=== PATIENT | female | born 1940 | race Caucasian/White ===

== ENCOUNTER → 2016-09-02 | Outpatient (CLI) | payer MEDICARE, BC ==
--- NOTE | 2016-09-03 13:31 | MM ---
Reason for exam: screening (asymptomatic). Last mammogram was performed 2 years and 7 months ago. History: Patient is postmenopausal and has history of high-risk lesion on a previous biopsy at age 72. Family history of breast cancer in mother. Benign left breast needle localization of both breasts, January 17, 2013. High risk left mammotome panel of the left breast, January 03, 2013. Taking estrogen for 24 years beginning at age 48. Physical Findings: A clinical breast exam by your physician is recommended on an annual basis and results should be correlated with mammographic findings. MG 3D Screening Mammo W/Cad Bilateral CC and MLO view(s) were taken. Prior study comparison: February 06, 2014, bilateral MG diagnostic mammo w CAD SANJANA. July 24, 2013, left diagnostic mammogram w/CAD. The breast tissue is heterogeneously dense. This may lower the sensitivity of mammography. No significant changes when compared with prior studies. ASSESSMENT: Benign, BI-RAD 2 RECOMMENDATION: Routine screening mammogram of both breasts in 1 year.
== END | disposition home or self-care (01) ==
LOC: RADMAMWWP 12:56
PROVIDERS: ATTEND Internal Medicine
DX: Z12.31 Encounter for screening mammogram for malignant neoplasm of breast (principal)
CPT/HCPCS: 77063; G0202

== ENCOUNTER → 2016-12-30 | Outpatient (CLI) | payer MEDICARE, BC ==
[2016-12-30 09:49] LABS: Basophils % (A) 1 %; CH 31.9; CHCM 34.1; Eosinophils # (A) 0.2 k/uL (0-0.7); Eosinophils % (A) 4 %; HCT 44.1 % (34.0-46.0); HDW 2.59; HGB 14.6 gm/dL (11.4-16.0); Luc # (Auto) 0.17; Luc % (Auto) 3; Lymphocytes # (A) 1.5 k/uL (1.0-4.8); Lymphocytes % (A) 28 %; MCH 31.2 pg (25.0-35.0); MCHC 33.2 g/dL (31.0-37.0); MCV 94.1 fL (80.0-100.0); Mean Platelet Volume 7.2; Monocytes # (A) 0.6 k/uL (0-1.0); Monocytes % (A) 11 %; Neutrophils # (A) 2.9 k/uL (1.3-7.7); Neutrophils % (A) 53 %; RBC 4.69 m/uL (3.80-5.40); RDW 15.2 % (11.5-15.5); WBC 5.5 k/uL (3.8-10.6); WBC (Perox) 5.63
[2016-12-30 10:09] LABS: ALT 37 U/L (9-52); AST 27 U/L (14-36); Alkaline Phosphatase 87 U/L (38-126); Anion Gap 10 mmol/L; Blood Urea Nitrogen 18 mg/dL (7-17); Calcium 9.4 mg/dL (8.4-10.2); Carbon Dioxide 25 mmol/L (22-30); Chloride 105 mmol/L (98-107); Cholesterol 200 mg/dL (<200); Glucose 101 mg/dL (74-99); HDL Cholesterol 64 mg/dL (40-60); Non-African American GFR(MDRD) >60 (>60 ml/min/1.73 sqM); Potassium 4.3 mmol/L (3.5-5.1); Sodium 140 mmol/L (137-145); Total Bilirubin 0.5 mg/dL (0.2-1.3); Total Protein 6.6 g/dL (6.3-8.2)
[2016-12-30 13:29] LABS: Hemoglobin A1C 6.1 % (4.2-6.1)
== END | disposition home or self-care (01) ==
LOC: LABWHC1 09:10
PROVIDERS: ATTEND Internal Medicine
DX: E78.5 Hyperlipidemia, unspecified (principal); E11.9 Type 2 diabetes mellitus without complications
CPT/HCPCS: 36415; 80053; 80061; 83036; 84439; 84443; 85025

== ENCOUNTER → 2017-10-04 | Outpatient (CLI) | payer MEDICARE, BC ==
--- NOTE | 2017-10-05 13:24 | MM ---
Reason for exam: screening (asymptomatic). Last mammogram was performed 1 year and 1 month ago. History: Patient is postmenopausal and has history of high-risk lesion on a previous biopsy at age 72. Family history of breast cancer in mother. Benign left breast needle localization of both breasts, January 17, 2013. High risk left mammotome panel of the left breast, January 03, 2013. Taking estrogen for 24 years beginning at age 48. Physical Findings: A clinical breast exam by your physician is recommended on an annual basis and results should be correlated with mammographic findings. MG 3D Screening Mammo W/Cad Bilateral CC and MLO view(s) were taken. Prior study comparison: September 02, 2016, bilateral MG 3d screening mammo w/cad. February 06, 2014, bilateral MG diagnostic mammo w CAD SANJANA. The breast tissue is heterogeneously dense. This may lower the sensitivity of mammography. Finding #1: Stable architectural distortion in the upper outer quadrant, posterior middle position of the left breast consistent with known excision. Finding #2: There are typically benign dystrophic, round calcifications in both breasts. New nodularity in the right breast, few levels. New finding since February 06, 2014. ASSESSMENT: Incomplete: need additional imaging evaluation, BI-RAD 0 RECOMMENDATION: Ultrasound of the right breast. [facility] will attempt to contact patient to return for ultrasound.
== END | disposition home or self-care (01) ==
LOC: RADMAMWWP 14:32
PROVIDERS: ATTEND Internal Medicine
DX: Z12.31 Encounter for screening mammogram for malignant neoplasm of breast (principal)
CPT/HCPCS: 77063; 77067

== ENCOUNTER → 2017-10-21 | Outpatient (CLI) | payer MEDICARE, BC ==
--- NOTE | 2017-10-21 15:50 | USB ---
Reason for exam: additional evaluation requested from abnormal screening. History: Patient is postmenopausal and has history of high-risk lesion on a previous biopsy at age 72. Family history of breast cancer in mother. Benign left breast needle localization of both breasts, January 17, 2013. High risk left mammotome panel of the left breast, January 03, 2013. Taking estrogen for 24 years beginning at age 48. Physical Findings: Nurse did not find any significant physical abnormalities on exam. US Breast Workup RT Right complete breast ultrasound includes all four quadrants, the retroareolar region and axilla. Finding demonstrates a 0.6 x 0.4 x 0.5cm oval, cystic lesion at 12 o'clock, a 0.8 x 0.4 x 0.8cm oval, cystic lesion at 3 o'clock, a 0.9 x 0.4 x 0.4cm oval, mixed lesion at 6 o'clock, a 0.5 x 0.3 x 0.7cm oval, cystic lesion at 8 o'clock and a 0.7 x 0.4 x 0.4cm oval, cystic lesion at 10 o'clock. Overall fibrocystic change. These results were verbally communicated with the patient and result sheet given to the patient on 10/21/17. ASSESSMENT: Probably benign, BI-RAD 3 RECOMMENDATION: Follow-up diagnostic mammogram and ultrasound of the right breast in 6 months.
== END | disposition home or self-care (01) ==
LOC: RADUSWWP 14:31
PROVIDERS: ATTEND Internal Medicine
DX: R92.8 Other abnormal and inconclusive findings on diagnostic imaging of breast (principal)

== ENCOUNTER → 2018-01-11 | Outpatient (CLI) | payer MEDICARE, BC ==
[2018-01-11 13:42] LABS: MCH 30.8 pg (25.0-35.0); MCHC 32.7 g/dL (31.0-37.0); MCV 94.2 fL (80.0-100.0); Mean Platelet Volume 6.7; Platelet Count 319 k/uL (150-450); RBC 4.89 m/uL (3.80-5.40); RDW 13.6 % (11.5-15.5); WBC 8.7 k/uL (3.8-10.6)
[2018-01-11 13:43] LABS: Potassium 4.5 mmol/L (3.5-5.1)
== END | disposition home or self-care (01) ==
LOC: LABWHC1 13:03
PROVIDERS: ATTEND Internal Medicine Interventional Cardiology
DX: Z01.812 Encounter for preprocedural laboratory examination (principal); R07.9 Chest pain, unspecified; R06.02 Shortness of breath
CPT/HCPCS: 36415; 80051; 82565; 84520; 85027

== ENCOUNTER 2018-01-27 06:24 | Day surgery (SDC) | payer MEDICARE, BC ==
[2018-01-20 15:48] VITALS: BMI 31.1
[~2018-01-27 06:24] MED LIST: ALPRAZolam 0.25 MG TAB PO PRN; ALPRAZolam 0.5 MG TAB PO PRN; NITROGLYCERIN SL TABS 0.4 MG TAB SUBLINGUAL PRN; SODIUM CHLORIDE 0.9% 1,000 ML in EMPTY BAG 1 BAG IV ONE
[2018-01-27 06:56] LABS: Glucose,Whole Blood 102 mg/dL (75-99)
[2018-01-27] MEDS ORDERED: ASPIRIN 325 MG TAB PO ONE (07:00)
[2018-01-27] MEDS ORDERED: ATORVASTATIN 80 MG TAB PO ONE (07:00)
[2018-01-27 07:13] VITALS: RESP 16; TEMP 98
[2018-01-27] MEDS ORDERED: SODIUM CHLORIDE 0.9% 1,000 ML IV ONE (07:16)
[2018-01-27] MEDS ORDERED: LIDOCAINE 1% INJ 10MG/ML (20 ML MDV) ONE (08:59)
[2018-01-27] MEDS ORDERED: MIDAZOLAM 2 MG/2 ML VIAL ONE (08:59)
[2018-01-27] MEDS ORDERED: MIDAZOLAM 2 MG/2 ML VIAL IVP ONE (09:13)
[2018-01-27] MEDS ORDERED: fentaNYL (PF) 50 MCG/ML 2 ML AMP ONE (09:16)
[2018-01-27] MEDS ORDERED: LIDOCAINE 1% (PF) 10MG/ML VIAL SQ ONE (09:16)
[2018-01-27] MEDS ORDERED: fentaNYL (PF) 50 MCG/ML 2 ML AMP IVP ONE (09:17)
[2018-01-27] MEDS ORDERED: IOPAMIDOL-370 125ML BTL INJ ONE (09:32)
[2018-01-27] MEDS ORDERED: RX INFO: IV CONTRAST WAS GIVEN 1 EACH MISC MISCELLANE PRN (09:38)
[2018-01-27] MEDS ORDERED: SODIUM CHLORIDE 0.9% 1,000 ML IV SCH (09:45)
--- NOTE | 2018-01-27 09:59 | LTR ---
DATE OF SERVICE: 01/27/2018 RE: Jayshree Fields Dear Dr. Olson. Ms. Jayshree Fields underwent heart catheterization today and that revealed normal coronaries. Again, I want to thank you for allowing me to participate in her care and please do not hesitate to call if you have question or concern. Sincerely, Therese Lara. YURI / MARCO A: [id number] /
--- NOTE | 2018-01-27 10:20 | CC ---
CARDIAC CATHETERIZATION REPORT DATE OF SERVICE: January 27, 2019 PERFORMING PHYSICIAN: Basim Lopez MD, employment specialist. PROCEDURE PERFORMED: 1. Selective right and left coronary angiogram. 2. Left heart catheterization. INDICATION: This is a pleasant 77-year-old female patient who is diabetic who was experiencing exertional dyspnea concerning for angina . I did recommend proceeding with a stress test to rule out any severe underlying coronary artery disease, but the patient would rather proceed with a coronary angiogram. The benefits, risks, and alternatives were discussed with the patient. APPROACH: Right common femoral artery. COMPLICATION: None LEVEL OF SEDATION: Moderate with sedation length of 18 minutes. PROCEDURE DESCRIPTION: After obtaining an informed consent, the patient was brought to cardiac syrup machine laborer. The right common femoral artery was cannulated using micropuncture technique and a micropuncture wire was passed easily then I placed a 6-[place] Ze[place]ander sheath in the right common femoral artery. After that, I did selective right and left coronary angiogram using JR4 and JL4 catheters. Left heart catheterization was performed using 6-[place]ander pigtail catheter. The procedure was completed without any complication. SELECTIVE CORONARY ANGIOGRAM: 1. The right coronary artery is a large caliber vessel and it is a dominant vessel. It is angiographically normal. 2. The left main is normal as well. It bifurcates into the left circumflex, ramus intermedius, and left anterior descending artery. 3. The circumflex is a large caliber vessel. It is a nondominant vessel. It is angiographically normal. 4. The ramus intermedius is angiographically normal as well. It bifurcates into 2 branches, both are angiographically normal. 5. The LAD: The LAD itself is angiographically normal. In the midportion gives rise into a small diagonal branch which seems to be angiographically normal. HEMODYNAMICS: The left ventricular end-diastolic pressure was 18 mmHg and no gradient was identified across the aortic valve. CONCLUSION: 1. Normal coronary angiogram. 2. Normal left ventricular end-diastolic pressure. POSTPROCEDURE MANAGEMENT: 1. Medical treatment. 2. Follow up with the patient. MMODL / IJN: [id number] /
[2018-01-27 13:32] VITALS: BP 154/76; PULSE 66
== END 2018-01-27 14:58 | disposition home or self-care (01) ==
LOC: CATHCVL 06:24
PROVIDERS: ATTEND Internal Medicine Interventional Cardiology
DX: I20.0 Unstable angina (principal); I10 Essential (primary) hypertension; E11.9 Type 2 diabetes mellitus without complications; E78.00 Pure hypercholesterolemia, unspecified; Z82.49 Family history of ischemic heart disease and other diseases of the circulatory system; Z88.0 Allergy status to penicillin; Z88.2 Allergy status to sulfonamides; Z79.84 Long term (current) use of oral hypoglycemic drugs; Z79.890 Hormone replacement therapy; Z79.51 Long term (current) use of inhaled steroids
CPT/HCPCS: 93458; C1894; C1769 ×2; C1760; J2250; J3010; J2001; Q9967

== ENCOUNTER 2018-08-18 06:52 | Day surgery (SDC) | payer MEDICARE, BC ==
[2018-08-15 11:00] VITALS: BMI 31.1
[~2018-08-18 06:52] MED LIST changes: -ALPRAZolam 0.25 MG TAB PO PRN; -ALPRAZolam 0.5 MG TAB PO PRN; +LACTATED RINGERS 1,000 ML IV SCH; +LIDOCAINE 1% 20 ML VIAL (10MG/ML) FOR IV START INTRADERMA PRN; -NITROGLYCERIN SL TABS 0.4 MG TAB SUBLINGUAL PRN; -SODIUM CHLORIDE 0.9% 1,000 ML in EMPTY BAG 1 BAG IV ONE
[2018-08-18 07:17] VITALS: TEMP 96.8
[2018-08-18 07:28] LABS: Glucose,Whole Blood 99 mg/dL (75-99)
[2018-08-18] MEDS ORDERED: PROPOFOL 10 MG/ML 20 ML VIAL IV ONE (08:03)
[2018-08-18] MEDS ORDERED: LIDOCAINE 1% INJ 10MG/ML (20 ML MDV) ONE (08:03)
[2018-08-18] MEDS ORDERED: fentaNYL (PF) 50 MCG/ML 2 ML AMP ONE (08:03)
[2018-08-18] MEDS ORDERED: ONDANSETRON 4 MG/2 ML VIAL ONE (08:03)
--- NOTE | 2018-08-18 08:44 | P.PCN ---
Date of Procedure: 08/18/18 Procedure(s) Performed: Procedure: 1. Esophagogastroduodenoscopy and biopsy. 2. Total colonoscopy. Preoperative diagnosis: Gastroesophageal reflux disease and screening for colon cancer. Postoperative diagnosis: 1. Small sliding hiatal hernia with no obvious esophagitis or complicated reflux disease. 2. Mild antral gastritis. 3. Biopsies obtained from the duodenum, antrum and esophagus. 4. Colonoscopy revealed mild diverticulosis with no evidence of acute diverticulitis, strictures, polyps or cancer. Preparation: HalfLytely prep. Sedation: Was provided by anesthesia. Brief clinical history: The patient is a 78-year-old female who is scheduled for this evaluation because of symptomatic GERD, despite therapy, with throat complaints and atypical chest pains and intermittent issues with swallowing. In addition, she is scheduled for colonoscopy for screening for neoplasia age being her risk factor. Her last exam was more than 11 years ago. Procedure: With the patient on her left lateral decubitus position and after informed consent and adequate sedation, I passed the Olympus-GIF H190 video upper endoscope through the cricopharyngeus down the esophagus. GE junction was around 33-34 cm from the incisors and there was a small sliding hiatal hernia but no obvious esophagitis or complicated reflux disease. Specifically, there was no erosions, ulcers, Robins's esophagus or strictures. The endoscope was then passed into the stomach which was insufflated with air and inspected in detail including the retroflex view in the cardia. There was some mottling and erythema in the antrum but no ulcers or erosions. Pyloric channel did not show any ulcers. Duodenal bulb showed minimal erythema. Post bulbar area and descending duodenum appeared within normal limits. Because of her symptoms, I obtained biopsies from the duodenum, antrum and esophagus then the endoscope was withdrawn and I proceeded with the colonoscopy. Perianal area did not show any fissures or fistulas. There were no masses felt on digital rectal examination. The Olympus CFH 190L video colonoscope was then inserted in the rectum in the usual fashion and advanced to the cecum. There was occasional diverticular orifices seen scattered in the sigmoid and occasional orifice around the hepatic flexure and on the right side with no evidence of acute diverticulitis or strictures. The mucosa appeared healthy. No polyps or tumors were seen. I retroflexed the endoscope in the rectum before the endoscope was withdrawn. The patient tolerated the procedure well. Plan: The patient was reassured. Will await biopsy results. Discussed dietary measures. She will follow-up with you as planned and I will be happy to see in the office if her symptoms persist. For colon cancer screening, I did not recommend repeat exam in 10 years because of her age. She will discuss that with you.
[2018-08-18 09:00] VITALS: BP 144/64; PULSE 54; RESP 18
== END 2018-08-18 09:33 | disposition home or self-care (01) ==
LOC: ORWHC2ENDO 06:52
DX: Z12.11 Encounter for screening for malignant neoplasm of colon (principal); K29.50 Unspecified chronic gastritis without bleeding; K44.9 Diaphragmatic hernia without obstruction or gangrene; K57.30 Diverticulosis of large intestine without perforation or abscess without bleeding; J44.9 Chronic obstructive pulmonary disease, unspecified; E11.9 Type 2 diabetes mellitus without complications; K21.9 Gastro-esophageal reflux disease without esophagitis; E07.9 Disorder of thyroid, unspecified; I10 Essential (primary) hypertension; Z88.0 Allergy status to penicillin; Z88.2 Allergy status to sulfonamides; Z96.653 Presence of artificial knee joint, bilateral; Z79.84 Long term (current) use of oral hypoglycemic drugs; Z79.890 Hormone replacement therapy
CPT/HCPCS: 88305; 43239; J2405; J2001; J3010; J2704; G0121

== ENCOUNTER → 2018-09-28 | Outpatient (CLI) | payer MEDICARE, BC ==
[2018-09-28 10:09] LABS: Basophils # (A) 0.1 k/uL (0-0.2); Basophils % (A) 1 %; Eosinophils # (A) 0.3 k/uL (0-0.7); Eosinophils % (A) 5 %; HCT 43.4 % (34.0-46.0); Lymphocytes % (A) 30 %; MCH 31.2 pg (25.0-35.0); MCHC 32.3 g/dL (31.0-37.0); MCV 96.5 fL (80.0-100.0); Mean Platelet Volume 7.4; Monocytes # (A) 0.4 k/uL (0-1.0); Monocytes % (A) 6 %; Neutrophils # (A) 3.8 k/uL (1.3-7.7); Neutrophils % (A) 56 %; Platelet Count 247 k/uL (150-450); RDW 14.3 % (11.5-15.5); WBC 6.8 k/uL (3.8-10.6)
[2018-09-28 12:18] LABS: Erythrocyte Sedimentation Rate 13 mm/hr (0-20)
[2018-09-28 16:58] LABS: African American GFR (CKD) 63.4 (60.0-200.0); Albumin/Globulin Ratio 1.82 (1.60-3.17); Anion Gap 10.8 mmol/L (4.00-12.00); Calcium 9.7 mg/dL (8.7-10.3); Carbon Dioxide 24.2 mmol/L (21.6-31.8); Globulin 2.2 g/dL (1.6-3.3); Potassium 4.3 mmol/L (3.5-5.5); Total Bilirubin 0.5 mg/dL (0.3-1.2); Total Protein 6.2 g/dL (6.2-8.2)
[2018-09-28 17:46] LABS: T4, Free (Free Thyroxine) 0.9 ng/dL (0.80-1.80)
== END | disposition home or self-care (01) ==
LOC: LABWHC1 08:44
PROVIDERS: ATTEND Internal Medicine
DX: Z00.00 Encounter for general adult medical examination without abnormal findings (principal); I10 Essential (primary) hypertension; E78.5 Hyperlipidemia, unspecified
CPT/HCPCS: 36415; 80053; 80061; 84439; 84443; 85025; 85652

== ENCOUNTER → 2018-11-28 | Outpatient (CLI) | payer MEDICARE, BC ==
[2018-11-28 16:37] LABS: BUN/Creat Ratio 27.78 Ratio (12.00-20.00); Calcium 9.4 mg/dL (8.7-10.3); Non-African American GFR(CKD) 62.1 (60.0-200.0); Potassium 4.7 mmol/L (3.5-5.5)
[2018-11-28 16:46] LABS: T4, Free (Free Thyroxine) 1.1 ng/dL (0.80-1.80)
== END ==
LOC: LABWHC1 09:08
PROVIDERS: ATTEND Internal Medicine
DX: E03.9 Hypothyroidism, unspecified (principal)
CPT/HCPCS: 36415; 80048; 84439; 84443

== ENCOUNTER → 2019-10-24 | Outpatient (CLI) | payer MEDICARE, BC ==
--- NOTE | 2019-10-24 14:04 | MM ---
Reason for exam: additional evaluation requested from prior study. Last mammogram was performed 1 year and 1 month ago. History: Patient is postmenopausal and has history of high-risk lesion on a previous biopsy at age 72. Family history of breast cancer in mother. Benign left breast needle localization of both breasts, January 17, 2013. High risk left mammotome panel of the left breast, January 03, 2013. Taking estrogen for 24 years beginning at age 48. Physical Findings: Nurse did not find any significant physical abnormalities on exam. MG 3D Diag Mammo W/Cad SANJANA Bilateral CC and MLO view(s) were taken. Prior study comparison: October 05, 2018, bilateral MG 3d diag mammo w/cad SANJANA. October 04, 2017, bilateral MG 3d screening mammo w/cad. Bilateral calcifications. There is chronic nodularity bilaterally. No significant new findings when compared with previous films. These results were verbally communicated with the patient and result sheet given to the patient on 10/24/19. ASSESSMENT: Benign, BI-RAD 2 RECOMMENDATION: Routine screening mammogram of both breasts in 1 year.
== END | disposition home or self-care (01) ==
LOC: RADMAMWWP 12:42
PROVIDERS: ATTEND Internal Medicine
DX: R92.8 Other abnormal and inconclusive findings on diagnostic imaging of breast (principal)
CPT/HCPCS: 77066; G0279; 77062

== ENCOUNTER → 2019-12-04 | Outpatient (CLI) | payer MEDICARE, BC ==
--- NOTE | 2019-12-04 13:57 | US ---
EXAMINATION TYPE: US gallbladder DATE OF EXAM: 12/04/2019 COMPARISON: NONE CLINICAL HISTORY: 79-year-old female Cholecystitis K80.10. Pain and belching TECHNIQUE: Multiple sonographic images of the right upper quadrant are obtained. FINDINGS: EXAM MEASUREMENTS: Liver Length: 13.1 cm Gallbladder Wall: 0.2 cm CBD: 0.5 cm Right Kidney: 9.3 x 4.8 x 4.4 cm Pancreas: Echogenic with tail obscured by overlying bowel gas. Liver: Somewhat hypoechoic. This may be on a technical basis. No focal lesion seen. Gallbladder: Multiple mobile stones with largest - 2.2 cm . No abnormal distention or wall thickenin g. Evidence for sonographic Pizano's sign: neg CBD: wnl Right Kidney: No hydronephrosis. IMPRESSION: 1. Somewhat hypoechoic appearance to the liver. Suspect this to be on a technical basis. Correlate to exclude the possibility of hepatitis. 2. Cholelithiasis with multiple stones, largest measuring 2.2 cm. 3. No biliary ductal dilatation.
== END | disposition home or self-care (01) ==
LOC: RADUSWWP 12:48
PROVIDERS: ATTEND Internal Medicine
DX: K80.10 Calculus of gallbladder with chronic cholecystitis without obstruction (principal); Z88.0 Allergy status to penicillin; Z88.2 Allergy status to sulfonamides
CPT/HCPCS: 76705

== ENCOUNTER → 2020-06-28 | Outpatient (CLI) | payer MEDICARE, BC ==
[2020-06-28 19:25] LABS: HCT 44.2 % (37.2-46.3); HGB 14.6 g/dL (12.0-15.0); MCH 31.5 pg (27.0-32.0); MCV 95.3 fL (80.0-97.0); Mean Platelet Volume 10.4 fL (9.5-12.2); Platelet Count 276 X 10*3/uL (140-440); RBC 4.64 X 10*6/uL (4.10-5.20); RDW 14.5 % (11.5-14.5); WBC 9.26 X 10*3/uL (4.50-10.00)
[2020-06-28 22:33] LABS: Albumin 4.4 g/dL (3.80-4.90); Albumin/Globulin Ratio 2.2 (1.60-3.17); Anion Gap 9.1 mmol/L (4.00-12.00); BUN/Creat Ratio 24.44 Ratio (12.00-20.00); Calcium 9.8 mg/dL (8.7-10.3); Carbon Dioxide 28.9 mmol/L (21.6-31.8); Non-African American GFR(CKD) 61.2 (60.0-200.0); Potassium 4.6 mmol/L (3.5-5.5); Total Bilirubin 0.4 mg/dL (0.3-1.2); Total Protein 6.4 g/dL (6.2-8.2)
== END | disposition home or self-care (01) ==
LOC: LABWHC1 11:14
PROVIDERS: ATTEND Surgery
DX: K81.1 Chronic cholecystitis (principal)
CPT/HCPCS: 36415; 80053; 85027

== ENCOUNTER 2020-07-17 18:45 | Emergency (ER) | payer MEDICARE, BC ==
[2020-07-17 20:06] VITALS: RESP 18
[2020-07-17] MEDS ORDERED: SODIUM CHLORIDE 0.9% 1,000 ML IV ONE (21:14)
--- NOTE | 2020-07-17 21:15 | ED ---
General Adult HPI - General Chief complaint: Upper Respiratory Infection Stated complaint: cough/weakness/fever/headache/sob Time Seen by Provider: 07/17/20 21:13 Source: patient Mode of arrival: ambulatory Limitations: no limitations - History of Present Illness Initial comments: Jayshree is a 72-year-old female presents the ER today with concern that she has COVID. Patient reports that for the past 6 days she has had upper respiratory like infection the nasal congestion, cough, fever, malaise bodyaches. Patient states she has not been eating or drinking well because she doesn't feel good. - Related Data Home Medications Medication Instructions Recorded Confirmed Albuterol Inhaler (Mhu) [Ventolin 1 - 2 puff INHALATION RT-Q6H PRN 01/20/18 07/17/20 Hfa Inhaler (Mhu)] Aspirin 81 mg PO HS 01/20/18 07/17/20 Levothyroxine Sodium [Synthroid] 25 mcg PO DAILY 01/20/18 07/17/20 Meclizine HCl [Bonine] 25 mg PO DAILY PRN 01/20/18 07/17/20 Vitamin B Complex 1 each PO DAILY 01/20/18 07/17/20 estradioL [Estrace] 1 mg PO DAILY 01/20/18 07/17/20 Cetirizine HCl 10 mg PO HS 01/24/18 07/17/20 Cranberry Fruit Extract [Cranberry] 500 mg PO DAILY 01/24/18 07/17/20 metFORMIN HCL [Glucophage Xr] 500 mg PO BID 01/27/18 07/17/20 Budesonide/Formoterol Fumarate 2 puff INHALATION BID 08/15/18 07/17/20 [Symbicort 160-4.5 Mcg Inhaler] Omeprazole [PriLOSEC] 20 mg PO BID 08/15/18 07/17/20 Metoprolol Tartrate [Lopressor] 50 mg PO BID 08/18/18 07/17/20 Cholecalciferol [Vitamin D3 (25 25 mcg PO DAILY 07/17/20 07/17/20 Mcg = 1000 Iu)] Naproxen [Naprosyn] 375 mg PO Q12HR 07/17/20 07/17/20 Willis-3 Fatty Acids/Fish Oil [Fish 1 each PO DAILY 07/17/20 07/17/20 Oil 1,000 mg Softgel] Vitamin E 400 unit PO DAILY 07/17/20 07/17/20 Zinc 50 mg PO DAILY 07/17/20 07/17/20 Allergies Allergy/AdvReac Type Severity Reaction Status Date / Time Penicillins Allergy Unknown Verified 07/17/20 20:06 Sulfa (Sulfonamide Allergy Itching Verified 07/17/20 20:06 Antibiotics) Review of Systems ROS Statement: Those systems with pertinent positive or pertinent negative responses have been documented in the HPI. ROS Other: All systems not noted in ROS Statement are negative. Past Medical History Past Medical History: Atrial Flutter, Asthma, Diabetes Mellitus, GERD/Reflux, Hypertension, Thyroid Disorder Additional Past Medical History / Comment(s): difficulty swallowing and clearing throat, hx vertigo History of Any Multi-Drug Resistant Organisms: None Reported Past Surgical History: Heart Catheterization, Hysterectomy, Joint Replacement, Orthopedic Surgery Additional Past Surgical History / Comment(s): tiffanie knee replacement, ankle fused, bill hammer toes, bunionectomy, rt rotator cuff, tiffanie cataract Past Anesthesia/Blood Transfusion Reactions: Postoperative Nausea & Vomiting (PONV) Past Psychological History: No Psychological Hx Reported Smoking Status: Never smoker Past Alcohol Use History: None Reported Past Drug Use History: None Reported - Past Family History Mother Family Medical History: Cancer Father Family Medical History: Myocardial Infarction ([place]) Brother(s) Family Medical History: Cancer General Exam - General Exam Comments Initial Comments: Physical Exam GENERAL: Patient is well-developed and well-nourished. Appears dehydrated HENT: Normocephalic, Atraumatic. EYES: PERRL, EOMI PULMONARY: Unlabored respirations. CARDIOVASCULAR: RRR Warm and well perfused extremities ABDOMEN: Non-distended SKIN: No rashes or bruising : Deferred NEUROLOGIC: Alert and oriented Normal speech Normal gait MUSCULOSKELETAL: Moving all extremities with no apparent injury PSYCHIATRIC: No SI/HI Limitations: no limitations Course Vital Signs 07/17/20 07/17/20 07/17/20 20:03 21:54 23:32 Temperature 99.8 F H 98.9 F 98.6 F Pulse Rate 89 77 73 Respiratory 18 18 18 Rate Blood Pressure 146/69 139/70 149/75 O2 Sat by Pulse 96 95 95 Oximetry Medical Decision Making - Medical Decision Making 80-year-old female COVID, 6 days of symptoms is a candidate and would like to be treated with monoclonal antibodies Monoclonal antibodies were ordered and administered patient be discharged home in 1 hour of observation for adverse reaction to the infusion - Lab Data Result diagrams: 07/17/20 21:54 07/17/20 21:54 Lab Results 07/17/20 07/17/20 07/17/20 Range/Units 20:11 21:54 21:54 WBC 8.6 (3.8-10.6) k/uL RBC 4.82 (3.80-5.40) m/uL Hgb 15.2 (11.4-16.0) gm/dL Hct 44.3 (34.0-46.0) % MCV 91.8 (80.0-100.0) fL MCH 31.5 (25.0-35.0) pg MCHC 34.3 (31.0-37.0) g/dL RDW 13.3 (11.5-15.5) % Plt Count 246 (150-450) k/uL MPV 7.1 Neutrophils % 66 % Lymphocytes % 23 % Monocytes % 9 % Eosinophils % 0 % Basophils % 0 % Neutrophils # 5.6 (1.3-7.7) k/uL Lymphocytes # 2.0 (1.0-4.8) k/uL Monocytes # 0.8 (0-1.0) k/uL Eosinophils # 0.0 (0-0.7) k/uL Basophils # 0.0 (0-0.2) k/uL Sodium 135 L (137-145) mmol/L Potassium 4.3 (3.5-5.1) mmol/L Chloride 96 L (98-107) mmol/L Carbon Dioxide 29 (22-30) mmol/L Anion Gap 10 mmol/L BUN 26 H (7-17) mg/dL Creatinine 0.92 (0.52-1.04) mg/dL Est GFR (CKD-EPI)AfAm 69 (>60 ml/min/1.73 sqM) Est GFR (CKD-EPI)NonAf 60 (>60 ml/min/1.73 sqM) Glucose 147 H (74-99) mg/dL Calcium 9.4 (8.4-10.2) mg/dL Magnesium 2.1 (1.6-2.3) mg/dL Total Bilirubin 0.5 (0.2-1.3) mg/dL AST 31 (14-36) U/L ALT 23 (4-34) U/L Alkaline Phosphatase 99 (38-126) U/L Total Protein 6.3 (6.3-8.2) g/dL Albumin 3.8 (3.5-5.0) g/dL Coronavirus (PCR) Detected A (Not Detectd) Disposition Clinical Impression: COVID-19 Disposition: HOME SELF-CARE Condition: Stable Additional Instructions: You have tested positive for COVID 19 You received monoclonal antibody treatment You still need to quarantined for 10 days Return to the hospital if he have any worsening fever that doesn't improve with Tylenol or Motrin, shortness of breath or chest pain or any new or concerning symptoms Is patient prescribed a controlled substance at d/c from ED?: No Referrals: Megan Olson MD [Primary Care Provider] - 1-2 days
[2020-07-17] MEDS ORDERED: DEXAMETHASONE SOD PHOSPHATE 10 MG/ML 1 ML VIAL IV STA (21:44)
[2020-07-17 22:34] LABS: Albumin 3.8 g/dL (3.5-5.0); Calcium 9.4 mg/dL (8.4-10.2); Magnesium 2.1 mg/dL (1.6-2.3); Potassium 4.3 mmol/L (3.5-5.1); Total Bilirubin 0.5 mg/dL (0.2-1.3); Total Protein 6.3 g/dL (6.3-8.2)
--- NOTE | 2020-07-17 22:41 | XR ---
EXAMINATION TYPE: XR chest 1V DATE OF EXAM: 07/17/2020 COMPARISON: 06/25/2020. HISTORY: Cough. TECHNIQUE: Single frontal view of the chest is obtained. FINDINGS: There is no focal air space opacity, pleural effusion, or pneumothorax seen. The cardiac silhouette size is within normal limits. The osseous structures are intact. IMPRESSION: No acute process.
[2020-07-17] MEDS ORDERED: SODIUM CHLORIDE 0.9% 50 ML IVPB ONE (22:45)
[2020-07-17] MEDS ORDERED: BAMLANIVIMAB (EUA) 700 MG, ETESEVIMAB (EUA) 1,400 MG in SODIUM CHLORIDE 0.9% 50 ML IVPB ONE (22:45)
[2020-07-17 23:28] LABS: Basophils % (A) 0 %; Eosinophils % (A) 0 %; HCT 44.3 % (34.0-46.0); HGB 15.2 gm/dL (11.4-16.0); Lymphocytes % (A) 23 %; MCH 31.5 pg (25.0-35.0); MCHC 34.3 g/dL (31.0-37.0); MCV 91.8 fL (80.0-100.0); Mean Platelet Volume 7.1; Monocytes # (A) 0.8 k/uL (0-1.0); Monocytes % (A) 9 %; Neutrophils # (A) 5.6 k/uL (1.3-7.7); Neutrophils % (A) 66 %; Platelet Count 246 k/uL (150-450); RBC 4.82 m/uL (3.80-5.40); RDW 13.3 % (11.5-15.5); WBC 8.6 k/uL (3.8-10.6)
[2020-07-18 01:21] VITALS: BP 142/71; PULSE 69
[2020-07-18 01:22] VITALS: TEMP 99.8
== END 2020-07-18 01:58 | disposition home or self-care (01) ==
LOC: EC 18:45
DX: U07.1 COVID-19 (principal); J45.909 Unspecified asthma, uncomplicated; E11.9 Type 2 diabetes mellitus without complications; K21.9 Gastro-esophageal reflux disease without esophagitis; I10 Essential (primary) hypertension; E07.9 Disorder of thyroid, unspecified; I48.92 Unspecified atrial flutter; Z79.51 Long term (current) use of inhaled steroids; Z79.82 Long term (current) use of aspirin; Z79.890 Hormone replacement therapy; Z79.84 Long term (current) use of oral hypoglycemic drugs; Z79.899 Other long term (current) drug therapy; Z88.0 Allergy status to penicillin; Z88.2 Allergy status to sulfonamides; Z96.653 Presence of artificial knee joint, bilateral; Z98.42 Cataract extraction status, left eye; Z98.41 Cataract extraction status, right eye; Z95.5 Presence of coronary angioplasty implant and graft
CPT/HCPCS: 36415; 80053; 83735; 85025; 87635; 71045; 99285; 96365; 96375; 96361 ×2; J1100; Q0245

== ENCOUNTER 2020-08-05 06:26 | Day surgery (SDC) | payer MEDICARE, BC ==
[2020-07-17 11:17] VITALS: BMI 32.5
[~2020-08-05 06:26] MED LIST changes: +ACETAMINOPHEN TAB 500 MG TAB PO PRN; +DEXAMETHASONE SOD PHOSPHATE 4 MG/ML 1 ML VIAL IV ONE; +HEPARIN SODIUM,PORCINE/PF 5,000 UNIT/0.5 ML SYRINGE SQ PRN; +LIDOCAINE 1% (10MG/ML) FOR IV START INTRADERMA PRN; -LIDOCAINE 1% 20 ML VIAL (10MG/ML) FOR IV START INTRADERMA PRN; +ONDANSETRON 4 MG/2 ML VIAL IVP ONE
[2020-08-05 07:08] VITALS: RESP 16
[2020-08-05 07:19] LABS: Glucose,Whole Blood 111 mg/dL (75-99)
[2020-08-05] MEDS ORDERED: SUCCINYLCHOLINE CHLORIDE 100 MG/5 ML SYR IV ONE (07:40)
[2020-08-05] MEDS ORDERED: GLYCOPYRROLATE 0.2 MG/ML 2 ML VIAL ONE (07:40)
[2020-08-05] MEDS ORDERED: PROPOFOL 10 MG/ML 20 ML VIAL IV ONE (07:40)
[2020-08-05] MEDS ORDERED: fentaNYL (PF) 50 MCG/ML 2 ML AMP ONE (07:40)
[2020-08-05] MEDS ORDERED: ROCURONIUM 10 MG/ML (5 ML VIAL) IV ONE (07:40)
[2020-08-05] MEDS ORDERED: LIDOCAINE 1% INJ 10MG/ML (20 ML MDV) ONE (07:40)
[2020-08-05] MEDS ORDERED: WATER FOR INJECTION, STERILE 10 ML VIAL IV ONE (07:40)
[2020-08-05] MEDS ORDERED: NEOSTIGMINE 1 MG/ML 10 ML VIAL ONE (07:40)
[2020-08-05] MEDS ORDERED: ePHEDrine SULFATE/0.9% NACL/PF 50 MG/5 ML SYRINGE IV ONE (07:40)
--- NOTE | 2020-08-05 07:40 | P.GSHP ---
History of Present Illness H&P Date: 08/05/20 Chief Complaint: Chronic cholecystitis 80-year-old female has had complaints of right upper quadrant abdominal pain, nausea and vomiting intermittently for the last few years. Lately she has had more frequent episodes of pain and vomiting occurring almost weekly. Symptoms last for a few hours at a time. Ultrasound performed showing multiple gallstones with largest gallstone 2.2 cm. Denies any change in the color of her skin urine or stool. Recent labs normal. Past Medical History Past Medical History: Atrial Flutter, Asthma, CVA/TIA, Diabetes Mellitus, GERD/Reflux, Hypertension, Osteoarthritis (OA), Thyroid Disorder Additional Past Medical History / Comment(s): seasonal allergies, vertigo occasionally, PVC's-pt. denies atrial flutter, couple TIA's several years ago-no residual effects, this surgery was rescheduled due to patient & her testing positive for covid 4-7-21-sx. now resolved History of Any Multi-Drug Resistant Organisms: None Reported Past Surgical History: Heart Catheterization, Hysterectomy, Joint Replacement, Orthopedic Surgery Additional Past Surgical History / Comment(s): tiffanie knee replacement, left ankle fused, tiffanie. hammer toes, bunionectomy, rt rotator cuff, tiffanie cataract Past Anesthesia/Blood Transfusion Reactions: Motion Sickness, Postoperative Nausea & Vomiting (PONV) Additional Past Anesthesia/Blood Transfusion Reaction / Comment(s): severe PONV Past Psychological History: No Psychological Hx Reported Smoking Status: Never smoker Past Alcohol Use History: None Reported Past Drug Use History: None Reported - Past Family History Mother Family Medical History: Cancer Father Family Medical History: Myocardial Infarction ([place]) Brother(s) Family Medical History: Cancer Medications and Allergies Home Medications Medication Instructions Recorded Confirmed Type Albuterol Inhaler (Mhu) [Ventolin 1 - 2 puff INHALATION RT-Q6H PRN 01/20/18 08/05/20 History Hfa Inhaler (Mhu)] Aspirin 81 mg PO HS 01/20/18 08/01/20 History Levothyroxine Sodium [Synthroid] 25 mcg PO DAILY 01/20/18 08/01/20 History Meclizine HCl [Bonine] 25 mg PO DAILY PRN 01/20/18 08/01/20 History Vitamin B Complex 1 each PO DAILY 01/20/18 08/01/20 History estradioL [Estrace] 1 mg PO DAILY 01/20/18 08/01/20 History Cetirizine HCl 10 mg PO DAILY 01/24/18 08/05/20 History Cranberry Fruit Extract [Cranberry] 500 mg PO DAILY 01/24/18 08/01/20 History metFORMIN HCL [Glucophage Xr] 500 mg PO BID 01/27/18 08/05/20 History Budesonide/Formoterol Fumarate 2 puff INHALATION BID 08/15/18 08/01/20 History [Symbicort 160-4.5 Mcg Inhaler] Omeprazole [PriLOSEC] 20 mg PO BID 08/15/18 08/01/20 History Metoprolol Tartrate [Lopressor] 50 mg PO BID 08/18/18 08/01/20 History Cholecalciferol [Vitamin D3 (25 25 mcg PO DAILY 07/17/20 08/01/20 History Mcg = 1000 Iu)] Naproxen [Naprosyn] 375 mg PO Q12HR 07/17/20 08/01/20 History Cornish-3 Fatty Acids/Fish Oil [Fish 1 each PO DAILY 07/17/20 08/01/20 History Oil 1,000 mg Softgel] Vitamin E 400 unit PO DAILY 07/17/20 08/01/20 History Zinc 50 mg PO DAILY 07/17/20 08/01/20 History Allergies Allergy/AdvReac Type Severity Reaction Status Date / Time Penicillins Allergy Unknown Verified 08/05/20 06:56 Sulfa (Sulfonamide Allergy Itching Verified 08/05/20 06:56 Antibiotics) Surgical - Exam Vital Signs Temp Pulse Resp BP Pulse Ox 97.8 F 67 16 142/63 96 08/05/20 07:06 08/05/20 07:06 08/05/20 07:06 08/05/20 07:06 08/05/20 07:06 Physical exam: General: Well-developed, well-nourished HEENT: Normocephalic, sclerae nonicteric Abdomen: Nontender, nondistended Extremities: No edema Neuro: Alert and oriented Results - Labs Abnormal Lab Results - Last 24 Hours (Table) 08/05/20 Range/Units 07:14 POC Glucose (mg/dL) 111 H (75-99) mg/dL Assessment and Plan (1) Chronic cholecystitis Narrative/Plan: Will proceed with laparoscopic cholecystectomy, possible open cholecystectomy at this time. Risks of bleeding, infection, bile leak, bile duct injury, retained common bile duct stone, trocar injury, conversion to an open procedure, hernia, anesthesia related complications were reviewed. The patient understands and wishes to proceed. Current Visit: Yes Status: Acute Code(s): K81.1 - CHRONIC CHOLECYSTITIS SNOMED Code(s): 05545856
[2020-08-05] MEDS ORDERED: BUPIVACAIN-EPI 0.5%-1:200,000 30 ML VIAL SQ ONE ×2 (08:14)
--- NOTE | 2020-08-05 08:45 | P.OP ---
Date of Procedure: 08/05/20 Procedure(s) Performed: PREOPERATIVE DIAGNOSIS: Chronic cholecystitis POSTOPERATIVE DIAGNOSIS: Same PROCEDURE: Laparoscopic cholecystectomy SURGEON: Patricia EBL: Minimal see anesthesia record ANESTHESIA: Gen. COMPLICATIONS: None OPERATIVE PROCEDURE: The patient was brought and placed on the operating room table in the supine position. The patient was placed under general anesthesia at that time. The abdomen was prepped and draped in the usual sterile fashion. A small vertical infraumbilical incision was made. The fascia was grasped with the [place] forceps. The fascia was retracted anteriorly. The Veress needle was advanced into the peritoneal cavity. The saline drop test was normal. Insufflation took place up to 15 mmHg. A 5 mm optical trocar was advanced and the peritoneal cavity. 2 additional 5 mm trochars were placed in the right upper quadrant under direct visualization. A 12 mm trocar was advanced into the epigastric incision site. The gallbladder was retracted superiorly and laterally. The peritoneum overlying the infundibulum was bluntly dissected. The patient's cystic duct was visualized. The junction between the cystic duct common and hepatic duct was identified. The cystic duct was then divided after placement of 3 12 mm clips on the patient's side and one on the specimen side. The cystic artery was identified and clipped as well. A small vessel was seen along the gallbladder fossa and clipped as well. The gallbladder was then removed from the liver bed using electrocautery. The gallbladder was then removed from the epigastric trocar site with an Endo Catch bag. The gallbladder fossa was irrigated with saline. There was no evidence of any bleeding or biliary drainage seen. The fascia at the 12 millimeter site was closed using a Dc-Kesha 0 Vicryl stitch. The trochars were then removed. The skin at all 4 sites was closed using a 4-0 Monocryl stitch. Skin glue was utilized on the incision sites. At the end of this procedure the sponge and needle counts were correct. DISPOSITION: Stable to the recovery room
[2020-08-05] MEDS: HYDROmorphone 0.5 MG/0.5 ML SYRINGE IVP PRN ×2 (09:05→09:17)
[2020-08-05 09:13] VITALS: TEMP 97.1
[2020-08-05] MEDS ORDERED: LACTATED RINGERS 1,000 ML IV ONE (09:20)
[2020-08-05 09:46] LABS: Glucose,Whole Blood 159 mg/dL (75-99)
[2020-08-05] MEDS ORDERED: ACETAMINOPHEN TAB 325 MG TAB PO SCH (12:00)
[2020-08-05] MEDS ORDERED: ONDANSETRON 4 MG/2 ML VIAL ONE (12:57)
[2020-08-05] MEDS ORDERED: ONDANSETRON 4 MG/2 ML VIAL IVP ONE (12:58)
[2020-08-05 14:01] VITALS: BP 117/69; PULSE 59
[2020-08-05] MEDS ORDERED: IBUPROFEN 600 MG TAB PO SCH (15:00)
== END 2020-08-05 14:40 | disposition home or self-care (01) ==
LOC: OR 06:26
PROVIDERS: ATTEND Surgery
DX: K80.10 Calculus of gallbladder with chronic cholecystitis without obstruction (principal); K21.9 Gastro-esophageal reflux disease without esophagitis; I48.92 Unspecified atrial flutter; J45.909 Unspecified asthma, uncomplicated; E11.9 Type 2 diabetes mellitus without complications; Z86.73 Personal history of transient ischemic attack (TIA), and cerebral infarction without residual deficits; I10 Essential (primary) hypertension; M19.90 Unspecified osteoarthritis, unspecified site; E07.9 Disorder of thyroid, unspecified; J30.2 Other seasonal allergic rhinitis; R42 Dizziness and giddiness; I49.3 Ventricular premature depolarization; Z86.16 Personal history of COVID-19; Z90.710 Acquired absence of both cervix and uterus; Z96.653 Presence of artificial knee joint, bilateral; Z98.890 Other specified postprocedural states; Z80.9 Family history of malignant neoplasm, unspecified; Z82.49 Family history of ischemic heart disease and other diseases of the circulatory system; Z79.84 Long term (current) use of oral hypoglycemic drugs; Z79.82 Long term (current) use of aspirin; Z79.890 Hormone replacement therapy; Z79.51 Long term (current) use of inhaled steroids; Z79.899 Other long term (current) drug therapy; Z79.1 Long term (current) use of non-steroidal anti-inflammatories (NSAID); Z88.2 Allergy status to sulfonamides; Z88.0 Allergy status to penicillin
CPT/HCPCS: 88304; 47562; J1100; J2710; J0690; J2405; J2001; J3010; J0330; J2704; J1170; J1790; J1644

== ENCOUNTER → 2021-06-05 | Outpatient (CLI) | payer MEDICARE, BC ==
[2021-06-05 14:56] LABS: HCT 43.7 % (37.2-46.3); MCH 30.9 pg (27.0-32.0); MCV 96.5 fL (80.0-97.0); Mean Platelet Volume 9.9 fL (9.5-12.2); NRBC Per 100 WBC 0 /100 WBCS (0.0-0.0); Platelet Count 247 X 10*3/uL (140-440); RBC 4.53 X 10*6/uL (4.10-5.20); RDW 14.7 % (11.5-14.5); WBC 7.35 X 10*3/uL (4.50-10.00)
[2021-06-05 15:45] LABS: ALT 23 U/L (8-44); AST 27 U/L (13-35); African American GFR (CKD) 74.5 (60.0-200.0); Albumin/Globulin Ratio 1.53 (1.60-3.17); Alkaline Phosphatase 85 U/L (41-126); BUN/Creat Ratio 24.16 Ratio (12.00-20.00); Blood Urea Nitrogen 20.9 mg/dL (9.0-27.0); Calcium 9.3 mg/dL (8.7-10.3); Carbon Dioxide 25.6 mmol/L (20.0-27.5); Chloride 102 mmol/L (96-109); Chol/HDL Ratio 2.69 Ratio; Globulin 2.6 g/dL (1.6-3.3); Glucose 106 mg/dL (70-110); LDL Cholesterol,Calculated 80.1 mg/dL (0.0-131.0); Non-African American GFR(CKD) 64.3 (60.0-200.0); Potassium 4.3 mmol/L (3.5-5.5); Sodium 140 mmol/L (135-145); Total Protein 6.6 g/dL (6.2-8.2)
== END | disposition home or self-care (01) ==
LOC: LABWHC1 10:10
PROVIDERS: ATTEND Internal Medicine
DX: E78.5 Hyperlipidemia, unspecified (principal); I10 Essential (primary) hypertension
CPT/HCPCS: 36415; 80053; 80061; 83036; 84439; 84443; 85027

== ENCOUNTER 2021-09-16 08:04 | Emergency (ER) | payer MEDICARE, BC ==
[2021-09-16 08:09] VITALS: RESP 18
--- NOTE | 2021-09-16 08:40 | ED ---
General Adult HPI - General Chief complaint: Chest Pain Stated complaint: Chest/lung pain Time Seen by Provider: 09/16/21 08:10 Source: patient, RN notes reviewed Mode of arrival: wheelchair Limitations: no limitations - History of Present Illness Initial comments: 72-year-old female presents emergency Department with chief complaint of chest burning. Patient states she has been sick last few days if persistent cough congestion states that she does have underlying asthma she is inhaler which seemed to help some states she has a burning sensation in her lungs. She denies any reflux no pain or pressure or chest. Patient denies any known fever denies any sick contacts. Patient states that she feels like she started having productive cough denies nausea, vomiting, diarrhea constipation - Related Data Home Medications Medication Instructions Recorded Confirmed Albuterol Inhaler (Mhu) [Ventolin 1 - 2 puff INHALATION RT-Q6H PRN 01/20/18 08/05/20 Hfa Inhaler (Mhu)] Aspirin 81 mg PO HS 01/20/18 08/01/20 Levothyroxine Sodium [Synthroid] 25 mcg PO DAILY 01/20/18 08/01/20 Meclizine HCl [Bonine] 25 mg PO DAILY PRN 01/20/18 08/01/20 Vitamin B Complex 1 each PO DAILY 01/20/18 08/01/20 estradioL [Estrace] 1 mg PO DAILY 01/20/18 08/01/20 Cetirizine HCl 10 mg PO DAILY 01/24/18 08/05/20 Cranberry Fruit Extract [Cranberry] 500 mg PO DAILY 01/24/18 08/01/20 metFORMIN HCL [Glucophage Xr] 500 mg PO BID 01/27/18 08/05/20 Budesonide/Formoterol Fumarate 2 puff INHALATION BID 08/15/18 08/01/20 [Symbicort 160-4.5 Mcg Inhaler] Omeprazole [PriLOSEC] 20 mg PO BID 08/15/18 08/01/20 Metoprolol Tartrate [Lopressor] 50 mg PO BID 08/18/18 08/01/20 Cholecalciferol [Vitamin D3 (25 25 mcg PO DAILY 07/17/20 08/01/20 Mcg = 1000 Iu)] Naproxen [Naprosyn] 375 mg PO Q12HR 07/17/20 08/01/20 Mesa-3 Fatty Acids/Fish Oil [Fish 1 each PO DAILY 07/17/20 08/01/20 Oil 1,000 mg Softgel] Vitamin E 400 unit PO DAILY 07/17/20 08/01/20 Zinc 50 mg PO DAILY 07/17/20 08/01/20 Previous Rx's Medication Instructions Recorded oxyCODONE HCL [OxyIR] 5 mg PO Q6H PRN 3 Days #6 tab 08/05/20 Azithromycin [Zithromax Z-pack (6 0 mg PO DIRECTED #1 packet 09/16/21 tabs)] predniSONE 50 mg PO DAILY #5 tab 09/16/21 Allergies Allergy/AdvReac Type Severity Reaction Status Date / Time Penicillins Allergy Unknown Verified 09/16/21 08:06 Sulfa (Sulfonamide Allergy Itching Verified 09/16/21 08:06 Antibiotics) Review of Systems ROS Statement: Those systems with pertinent positive or pertinent negative responses have been documented in the HPI. ROS Other: All systems not noted in ROS Statement are negative. Past Medical History Past Medical History: Atrial Flutter, Asthma, Diabetes Mellitus, GERD/Reflux, Hypertension, Thyroid Disorder Additional Past Medical History / Comment(s): difficulty swallowing and clearing throat, hx vertigo History of Any Multi-Drug Resistant Organisms: None Reported Past Surgical History: Cholecystectomy Additional Past Surgical History / Comment(s): tiffanie knee replacement, ankle fused, bill hammer toes, bunionectomy, rt rotator cuff, tiffanie cataract Past Anesthesia/Blood Transfusion Reactions: Postoperative Nausea & Vomiting (PONV) Past Psychological History: No Psychological Hx Reported Smoking Status: Never smoker Past Alcohol Use History: None Reported Past Drug Use History: None Reported - Past Family History Mother Family Medical History: Cancer Father Family Medical History: Myocardial Infarction ([place]) Brother(s) Family Medical History: Cancer General Exam Limitations: no limitations General appearance: alert, in no apparent distress Head exam: Present: atraumatic, normocephalic, normal inspection Eye exam: Present: normal appearance, PERRL, EOMI. Absent: scleral icterus, conjunctival injection, periorbital swelling ENT exam: Present: normal exam, mucous membranes moist Neck exam: Present: normal inspection, full ROM. Absent: tenderness, meni ngismus, lymphadenopathy Respiratory exam: Present: rhonchi. Absent: normal lung sounds bilaterally, respiratory distress, wheezes, rales, stridor Cardiovascular Exam: Present: regular rate, normal rhythm, normal heart sounds. Absent: systolic murmur, diastolic murmur, rubs, gallop, clicks GI/Abdominal exam: Present: soft, normal bowel sounds. Absent: distended, tenderness, guarding, rebound, rigid Neurological exam: Present: alert, oriented X3 Course Vital Signs 09/16/21 09/16/21 08:06 09:09 Temperature 98.3 F Pulse Rate 68 62 Respiratory 18 18 Rate Blood Pressure 166/76 175/92 O2 Sat by Pulse 97 95 Oximetry EKG Findings - EKG Comments: EKG Findings:: EKG performed at 8:16 sinus rhythm with a rate of 63 NE 193 QRS 92 QT status QTC 370 736 Medical Decision Making - Medical Decision Making 81-year-old female presented for burning of her lungs, chest. Patient has been sick for last several days. X-ray doesn't show definite infiltrate. She has negative: 19 negative influenza troponin is negative for symptoms are consistent with cardiac disease. Patient to for asthmatic bronchitis. Patient discharged in stable condition return parameters discussed. - Lab Data Result diagrams: 09/16/21 08:29 09/16/21 08:29 Lab Results 09/16/21 09/16/21 09/16/21 Range/Units 08:29 08:29 08:29 WBC 10.7 H (3.8-10.6) k/uL RBC 4.69 (3.80-5.40) m/uL Hgb 15.2 (11.4-16.0) gm/dL Hct 45.7 (34.0-46.0) % MCV 97.6 (80.0-100.0) fL MCH 32.5 (25.0-35.0) pg MCHC 33.3 (31.0-37.0) g/dL RDW 13.9 (11.5-15.5) % Plt Count 270 (150-450) k/uL MPV 7.0 Neutrophils % 71 % Lymphocytes % 20 % Monocytes % 5 % Eosinophils % 2 % Basophils % 1 % Neutrophils # 7.5 (1.3-7.7) k/uL Lymphocytes # 2.1 (1.0-4.8) k/uL Monocytes # 0.6 (0-1.0) k/uL Eosinophils # 0.2 (0-0.7) k/uL Basophils # 0.1 (0-0.2) k/uL PT 9.7 (9.0-12.0) sec INR 0.9 (<1.2) APTT 23.5 (22.0-30.0) sec Sodium 138 (137-145) mmol/L Potassium 4.8 (3.5-5.1) mmol/L Chloride 102 (98-107) mmol/L Carbon Dioxide 29 (22-30) mmol/L Anion Gap 7 mmol/L BUN 25 H (7-17) mg/dL Creatinine 0.94 (0.52-1.04) mg/dL Est GFR (CKD-EPI)AfAm 67 (>60 ml/min/1.73 sqM) Est GFR (CKD-EPI)NonAf 58 (>60 ml/min/1.73 sqM) Glucose 115 H (74-99) mg/dL Plasma Lactic Acid Rishi (0.7-2.0) mmol/L Calcium 9.4 (8.4-10.2) mg/dL Magnesium 2.0 (1.6-2.3) mg/dL Total Bilirubin 0.2 (0.2-1.3) mg/dL AST 31 (14-36) U/L ALT 24 (4-34) U/L Alkaline Phosphatase 103 (38-126) U/L Troponin I (0.000-0.034) ng/mL NT-Pro-B Natriuret Pep pg/mL Total Protein 6.9 (6.3-8.2) g/dL Albumin 4.2 (3.5-5.0) g/dL Coronavirus (PCR) (Not Detectd) Influenza Type A RNA (Not Detectd) Influenza Type B (PCR) (Not Detectd) 09/16/21 09/16/21 09/16/21 Range/Units 08:29 08:29 08:29 WBC (3.8-10.6) k/uL RBC (3.80-5.40) m/uL Hgb (11.4-16.0) gm/dL Hct (34.0-46.0) % MCV (80.0-100.0) fL MCH (25.0-35.0) pg MCHC (31.0-37.0) g/dL RDW (11.5-15.5) % Plt Count (150-450) k/uL MPV Neutrophils % % Lymphocytes % % Monocytes % % Eosinophils % % Basophils % % Neutrophils # (1.3-7.7) k/uL Lymphocytes # (1.0-4.8) k/uL Monocytes # (0-1.0) k/uL Eosinophils # (0-0.7) k/uL Basophils # (0-0.2) k/uL PT (9.0-12.0) sec INR (<1.2) APTT (22.0-30.0) sec Sodium (137-145) mmol/L Potassium (3.5-5.1) mmol/L Chloride (98-107) mmol/L Carbon Dioxide (22-30) mmol/L Anion Gap mmol/L BUN (7-17) mg/dL Creatinine (0.52-1.04) mg/dL Est GFR (CKD-EPI)AfAm (>60 ml/min/1.73 sqM) Est GFR (CKD-EPI)NonAf (>60 ml/min/1.73 sqM) Glucose (74-99) mg/dL Plasma Lactic Acid Rishi 1.5 (0.7-2.0) mmol/L Calcium (8.4-10.2) mg/dL Magnesium (1.6-2.3) mg/dL Total Bilirubin (0.2-1.3) mg/dL AST (14-36) U/L ALT (4-34) U/L Alkaline Phosphatase (38-126) U/L Troponin I <0.012 (0.000-0.034) ng/mL NT-Pro-B Natriuret Pep 112 pg/mL Total Protein (6.3-8.2) g/dL Albumin (3.5-5.0) g/dL Coronavirus (PCR) (Not Detectd) Influenza Type A RNA (Not Detectd) Influenza Type B (PCR) (Not Detectd) 09/16/21 09/16/21 Range/Units 08:29 08:29 WBC (3.8-10.6) k/uL RBC (3.80-5.40) m/uL Hgb (11.4-16.0) gm/dL Hct (34.0-46.0) % MCV (80.0-100.0) fL MCH (25.0-35.0) pg MCHC (31.0-37.0) g/dL RDW (11.5-15.5) % Plt Count (150-450) k/uL MPV Neutrophils % % Lymphocytes % % Monocytes % % Eosinophils % % Basophils % % Neutrophils # (1.3-7.7) k/uL Lymphocytes # (1.0-4.8) k/uL Monocytes # (0-1.0) k/uL Eosinophils # (0-0.7) k/uL Basophils # (0-0.2) k/uL PT (9.0-12.0) sec INR (<1.2) APTT (22.0-30.0) sec Sodium (137-145) mmol/L Potassium (3.5-5.1) mmol/L Chloride (98-107) mmol/L Carbon Dioxide (22-30) mmol/L Anion Gap mmol/L BUN (7-17) mg/dL Creatinine (0.52-1.04) mg/dL Est GFR (CKD-EPI)AfAm (>60 ml/min/1.73 sqM) Est GFR (CKD-EPI)NonAf (>60 ml/min/1.73 sqM) Glucose (74-99) mg/dL Plasma Lactic Acid Rishi (0.7-2.0) mmol/L Calcium (8.4-10.2) mg/dL Magnesium (1.6-2.3) mg/dL Total Bilirubin (0.2-1.3) mg/dL AST (14-36) U/L ALT (4-34) U/L Alkaline Phosphatase (38-126) U/L Troponin I (0.000-0.034) ng/mL NT-Pro-B Natriuret Pep pg/mL Total Protein (6.3-8.2) g/dL Albumin (3.5-5.0) g/dL Coronavirus (PCR) Not Detected (Not Detectd) Influenza Type A RNA Not Detected (Not Detectd) Influenza Type B (PCR) Not Detected (Not Detectd) Disposition Clinical Impression: Tracheobronchitis, Asthma Disposition: HOME SELF-CARE Condition: Stable Instructions (If sedation given, give patient instructions): Asthma (DC), Acute Bronchitis (ED) Additional Instructions: Please return to the Emergency Department if symptoms worsen or any other concerns. Prescriptions: predniSONE 50 mg PO DAILY #5 tab Azithromycin [Zithromax Z-pack (6 tabs)] 0 mg PO DIRECTED #1 packet Is patient prescribed a controlled substance at d/c from ED?: No Referrals: Megan Olson MD [Primary Care Provider] - 1-2 days Time of Disposition: 10:21
[2021-09-16 08:56] LABS: Basophils # (A) 0.1 k/uL (0-0.2); Basophils % (A) 1 %; Eosinophils # (A) 0.2 k/uL (0-0.7); Eosinophils % (A) 2 %; HCT 45.7 % (34.0-46.0); HGB 15.2 gm/dL (11.4-16.0); Lymphocytes # (A) 2.1 k/uL (1.0-4.8); Lymphocytes % (A) 20 %; MCH 32.5 pg (25.0-35.0); MCHC 33.3 g/dL (31.0-37.0); MCV 97.6 fL (80.0-100.0); Monocytes # (A) 0.6 k/uL (0-1.0); Monocytes % (A) 5 %; Neutrophils # (A) 7.5 k/uL (1.3-7.7); Neutrophils % (A) 71 %; Platelet Count 270 k/uL (150-450); RBC 4.69 m/uL (3.80-5.40); RDW 13.9 % (11.5-15.5); WBC 10.7 k/uL (3.8-10.6)
[2021-09-16 09:09] LABS: Albumin 4.2 g/dL (3.5-5.0); Calcium 9.4 mg/dL (8.4-10.2); Potassium 4.8 mmol/L (3.5-5.1); Total Bilirubin 0.2 mg/dL (0.2-1.3); Total Protein 6.9 g/dL (6.3-8.2)
[2021-09-16 09:11] LABS: INR 0.9 (<1.2); Partial Thromboplastin Time 23.5 sec (22.0-30.0); Prothrombin Time 9.7 sec (9.0-12.0)
--- NOTE | 2021-09-16 09:41 | XR ---
EXAMINATION TYPE: XR chest 2V DATE OF EXAM: 09/16/2021 COMPARISON: 07/17/2020 HISTORY: 81 year-old female shortness of breath, difficulty breathing TECHNIQUE: PA and lateral views FINDINGS: Heart upper limits of normal in size. Aorta within normal limits. Some scattered areas of strandy ate lectasis. Moderate spondylotic change throughout the thoracic spine. Facet arthropathy and degenerati ve disc disease also noted in the visualized lumbar spine. Cholecystectomy clips. No junito consolidat ion or pleural effusion. IMPRESSION: Mild scattered strandy areas of atelectasis. No definite acute process.
[2021-09-16] MEDS ORDERED: cefTRIAXone IN SWFI 1,000 MG/10 ML SYRINGE IVP STA (10:44)
[2021-09-16 11:03] VITALS: BP 172/83; PULSE 63; TEMP 98.9
== END 2021-09-16 11:05 | disposition home or self-care (01) ==
LOC: EC 08:04
DX: J45.909 Unspecified asthma, uncomplicated (principal); E11.9 Type 2 diabetes mellitus without complications; K21.9 Gastro-esophageal reflux disease without esophagitis; I10 Essential (primary) hypertension; E07.9 Disorder of thyroid, unspecified; Z88.0 Allergy status to penicillin; Z88.2 Allergy status to sulfonamides; Z79.899 Other long term (current) drug therapy; Z79.51 Long term (current) use of inhaled steroids; Z79.84 Long term (current) use of oral hypoglycemic drugs; Z79.890 Hormone replacement therapy; Z79.82 Long term (current) use of aspirin; Z20.822 Contact with and (suspected) exposure to COVID-19
CPT/HCPCS: 36415; 93005; 83880; 80053; 83605; 83735; 84484; 85025; 85610; 85730; 87502; 87635; 71046; 99285; 96374; J0696

== ENCOUNTER → 2021-12-29 | Outpatient (CLI) | payer MEDICARE, BC ==
--- NOTE | 2021-12-29 19:23 | BD ---
EXAMINATION TYPE: Axial Bone Density DATE OF EXAM: 12/29/2021 CLINICAL HISTORY: 81 years year old Female. ICD-10 CODE: M89.9 bone disorder Nuclear Medicine Study in the last 2 weeks: Barium Study in the last week: : Height: Weight: FRAX RISK QUESTIONS: Alcohol (3 or more units per day): NO Family History (Parent hip fracture): NO Glucocorticoids (More than 3mos): NO History of Fracture in Adulthood: LT LOWER LEG, AL ANKLE, LT FOOT Secondary Osteoporosis: 1. Type 1 Diabetes: NO 2. Hyperthyroidism: NO 3. Menopause before 45: YES 4. Malnutrition: NO 5. Chronic liver disease: NO Rheumatoid Arthritis: NO Current Tobacco Use: NO RISK FACTORS HISTORY OF: Hip Fracture (Right/Left): NO Spine Fracture: NO History of Wrist Fracture: NO Surgery to Spine/Hip(right/left)/Wrist (right/left): NO Family History of Osteoporosis: SISTER Active: NO Diet low in dairy products/other sources of calcium: NO Postmenopausal woman: YES Take estrogen and/or progesterone medications: ESTRACE How long: PAST 35 YEARS Lost more than 2 inches in height since high school: YES Frequent falls: YES Poor Health: NO Hyperparathyroidism: NO Adrenal Insufficiency: NO MEDICATIONS: Prednisone or other steroids: NO Thyroid Medications: LEVOTHYROXINE Which medication: PAST 10 YEARS Osteoporosis Medications: NO Additional Medications: Symbicort inhaler, levothyroxine, Metroprolol. Estrace, metformin, vit d, mag nesium, omeprazole EXAM MEASUREMENTS: Bone mineral densitometry was performed using the [employer] System. Bone mineral density as measured about the Lumbar spine is: ----- L1-L4(G/cm2): 1.257 T Score Values are as follows: ----- L1: -0.4 ----- L2: 0.1 ----- L3: 0.3 ----- L4: 2.4 ----- L1-L4: 0.6 Bone mineral density has: INCREASED 1.7 % since study of: 02/13/2014 Bone mineral density about the R hip (g/cm2): 0.873 Bone mineral density about the L hip (g/cm2): 0.866 T Score values are as follows: -----R Neck: -1.2 -----L Neck: -1.2 -----R Total: -0.4 -----L Total: -0.8 Bone mineral density has: DECREASED 4.8 % since study of: 02/13/2014 FRAX%s: The graph provided illustrates a 17.1% chance for a major osteoporotic fx and a 3.1% chance f or the hips probability for fx in 10 years time. IMPRESSION: Osteopenia (T Score between -2.5 and -1). There is slightly increased risk of fracture and the patient may be considered for treatment. Re-Screen 2-5 years. NOTE: T-SCORE=SD OF THE YOUNG ADULT MEAN.
== END | disposition home or self-care (01) ==
LOC: RADBDWWP 09:50
PROVIDERS: ATTEND Internal Medicine
DX: M89.9 Disorder of bone, unspecified (principal)
CPT/HCPCS: 77080

== ENCOUNTER → 2022-09-30 | Outpatient (CLI) | payer MEDICARE, BC ==
--- NOTE | 2022-09-30 09:00 | CT ---
EXAMINATION TYPE: CT sinus wo con DATE OF EXAM: 09/30/2022 COMPARISON: None HISTORY: sinusitis CT DLP: 570.8 mGycm. Automated Exposure Control for Dose Reduction was Utilized. TECHNIQUE: CT scan of the sinuses is performed without contrast, axial images are obtained, coronal r eformatted images are also reviewed. FINDINGS: Dental artifact limits the exam. The paranasal sinuses including the frontal, ethmoid, sphenoid, and maxillary sinuses bilaterally ar e well-aerated minimal mucosal thickening involving the upper margins of the maxillary sinuses. The ostiomeatal complex is patent bilaterally on the coronal images. Nasal septal deviation Visualized portion of mastoid air cells show no abnormal opacification. The globes are intact bilate rally. There is a 1.2 similar left parotid IMPRESSION: 1. The sinuses are clear with minimal chronic maxillary sinusitis and the ostiomeatal complex is goldsmith nt bilaterally. 2. Nasal septal deviation. 3. There is a 1.2 cm left parotid gland solid nodule. Recommend ultrasound of the left neck.
== END | disposition home or self-care (01) ==
LOC: RADCTMAIN 08:18
PROVIDERS: ATTEND Otolaryngology
DX: J32.0 Chronic maxillary sinusitis (principal); J34.2 Deviated nasal septum; K11.8 Other diseases of salivary glands
CPT/HCPCS: 70486

== ENCOUNTER → 2023-04-13 | Outpatient (CLI) | payer MEDICARE, BC ==
--- NOTE | 2023-04-13 12:55 | US ---
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 Previous measurement 1.0 c m. Small hypoechoic area within the left parotid region. This has some central vascularity. Finding appears enlarged but otherwise stable in appearance from the comparison. IMPRESSION: 1. Hypoechoic area within the left parotid region can be compatible with a lymph node. This has enlar ged slightly over the interval. CT soft tissue neck be performed as clinically
== END | disposition home or self-care (01) ==
LOC: RADUSWWP 12:01
PROVIDERS: ATTEND Otolaryngology
DX: D37.030 Neoplasm of uncertain behavior of the parotid salivary glands (principal)
CPT/HCPCS: 76536

== ENCOUNTER 2023-05-21 08:54 | Day surgery (SDC) | payer MEDICARE, BC ==
[2023-04-26 11:37] VITALS: BMI 32.8
[~2023-05-21 08:54] MED LIST changes: -ACETAMINOPHEN TAB 500 MG TAB PO PRN; -HEPARIN SODIUM,PORCINE/PF 5,000 UNIT/0.5 ML SYRINGE SQ PRN; +HYDROmorphone 0.5 MG/0.5 ML SYRINGE IVP PRN; -LACTATED RINGERS 1,000 ML IV SCH; -LIDOCAINE 1% (10MG/ML) FOR IV START INTRADERMA PRN; +MIDAZOLAM 2 MG/2 ML VIAL IV PRN
[2023-05-21] MEDS: LACTATED RINGERS 1,000 ML IV SCH (09:23)
[2023-05-21 09:41] LABS: Glucose,Whole Blood 138 mg/dL (70-110)
[2023-05-21] MEDS: DEXAMETHASONE SOD PHOSPHATE 4 MG/ML 1 ML VIAL IVP ONE (09:46)
[2023-05-21] MEDS: ONDANSETRON 4 MG/2 ML VIAL IVP ONE (09:46)
[2023-05-21] MEDS: MIDAZOLAM 2 MG/2 ML VIAL IVP ONE (09:53)
[2023-05-21] MEDS: fentaNYL (PF) 50 MCG/ML 2 ML AMP IVP ONE (09:54)
--- NOTE | 2023-05-21 10:09 | P.ANPRN ---
Procedure Note - Anesthesia - Nerve Block Performed Left Adductor Canal Single Time Out Performed: Yes Date of Procedure: 05/21/23 Procedure Start Time: :52 Procedure Stop Time: 10:00 Location of Patient: PreOp Indication: Acute Post-Operative Pain, Requested by Surgeon Sedation Type: Sedate with meaningful contact maintained Preparation: Sterile Prep Position: Supine Needle Types: Pajunk Needle Gauge: 21 Ultrasound used to visualize needle placement: Yes Ultrasound used to observe medication spread: Yes Injectate: 0.5% Ropivacaine (see comment for volume) (20 ml +10 ml NS + 4 mg Dexamethasone) Blood Aspirated: No Pain Paresthesia on Injection Noted: No Resistance on Injection: Normal Image Stored and Saved: Yes Events: Uneventful and Well Tolerated
--- NOTE | 2023-05-21 10:11 | P.ANPRN ---
Procedure Note - Anesthesia - Nerve Block Performed Left Popliteal Single Time Out Performed: Yes Date of Procedure: 05/21/23 Procedure Start Time: : Procedure Stop Time: : Location of Patient: PreOp Indication: Acute Post-Operative Pain, Requested by Surgeon Sedation Type: Sedate with meaningful contact maintained Preparation: Sterile Prep Position: Right Lateral Needle Types: Pajunk Needle Gauge: 21 Ultrasound used to visualize needle placement: Yes Ultrasound used to observe medication spread: Yes Injectate: 0.5% Ropivacaine (see comment for volume) (20 ml + 10 ml NS + 4 mg Dexamethasone) Blood Aspirated: No Pain Paresthesia on Injection Noted: No Resistance on Injection: Normal Image Stored and Saved: Yes Events: Uneventful and Well Tolerated
[2023-05-21] MEDS ORDERED: PHENYLEPHRINE 10 MG/ML VIAL ONE (10:40)
[2023-05-21] MEDS ORDERED: DEXAMETHASONE SOD PHOSPHATE 4 MG/ML 1 ML VIAL ONE (10:40)
[2023-05-21] MEDS ORDERED: ROPIVACAINE 5 MG/ML 30 ML VIAL ONE (10:40)
[2023-05-21] MEDS ORDERED: SODIUM CHLORIDE 0.9% (PF) 10 ML VIAL ONE (10:40)
[2023-05-21] MEDS ORDERED: SUCCINYLCHOLINE CHLORIDE 200 MG/10 ML VIAL IV ONE (10:40)
[2023-05-21] MEDS ORDERED: PROPOFOL 10 MG/ML 20 ML VIAL IV ONE (10:40)
[2023-05-21] MEDS ORDERED: ePHEDrine 50 MG/ML 1 ML VIAL ONE (10:40)
[2023-05-21] MEDS ORDERED: LIDOCAINE 1% INJ 10MG/ML (20 ML MDV) ONE (10:40)
[2023-05-21] MEDS ORDERED: fentaNYL (PF) 50 MCG/ML 2 ML AMP ONE (10:40)
[2023-05-21] MEDS: ceFAZolin 1,000 MG in SODIUM CHLORIDE 0.9% 1,000 ML IRRIGATION ONE (11:11)
--- NOTE | 2023-05-21 12:41 | P.OP ---
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 The patient was brought into the operating room and placed on table supine position. Timeout was taken to confirm correct patient identifiers correct laterally surgery and correct procedure. Once all staff in the room were in agreement timeout, the patient was induced and placed under general anesthesia. A well-padded tourniquet was placed the left thigh and the left leg was then prepped and draped usual manner. The left leg was exsanguinated the tourniquet inflated to 250 mmHg. Attention directed over the anterior lateral aspect of the foot and ankle. An incision was made over the sinus tarsi. He was deepened down to the subcutaneous tissue careful to identify, avoid, and retract any neurovascular structures and caut erize any bleeding vessels. Dissection was carried down by electrocautery down to the subtalar joint capsule. Subtalar joint capsule was incised anteriorly and laterally, releasing the calcaneofibular ligament. Visually there was little to no articular cartilage remaining on the talar surface of the subtalar joint. Pins for the distractor were placed in the talus and the calcaneus, and then the joint was distracted to allow for access. A combination of rotary burs were used to remove the subchondral bone and any remaining articular heart wedge, down to bleeding medullary bone. The surfaces were aggressively fenestrated with the drill bit and then fish scaled with an osteotome. The distractor as well as the wires for the distractor were removed. 10 mL of allograft was then placed between the arthrodesis segments. At that point fluoroscopic imaging was used to assess the amount of compression at the joint. It showed that the joint was in good contact on the AP as well as the Broden's view area a guidewire was placed in the posterior lateral calcaneus just distal to the Achilles tendon insertion and advanced in a anterior dorsal and medial direction across the arthrodesis site. Placement of the wire was confirmed on AP and lateral views of the foot and ankle. The next wire was placed slightly superior to the first it also had a more of a superior trajectory towards ankle joint, which is fused in this patient, across the subtalar joint. Fluoroscopic imaging confirmed proper placement of the second wire. Small stab incisions were made through the skin at the entry point of the wires. 7.0 mm fully threaded headless screws were inserted over the wires and advanced until the threaded fully seated of the calcaneus and adequate threads across the arthrodesis site. AP and lateral views of the foot and ankle show that the screws were properly placed and there was good compression at the arthrodesis site. Attempted range of motion of the joint did not show any visual motion. The wound is then irrigated with antibiotic saline. The deep capsular closure was done with 0 Vicryl. Subcutaneous closure done with 4-0 Monocryl. And skin closure done with sheyla. Nonadherent gauze and a bulky dry dressing applied to the foot and ankle. The tourniquet was released and capillary refill return to all digits on the left foot. A well-padded, well molded plaster posterior mold/sugar tong splint was placed on the left leg. Anesthesia was reversed and the patient was taken recovery with vital signs stable
[2023-05-21 12:51] LABS: Glucose,Whole Blood 192 mg/dL (70-110)
[2023-05-21 13:07] VITALS: PULSE 63; RESP 16; TEMP 97.7
[2023-05-21 13:36] VITALS: BP 124/68
== END 2023-05-21 13:55 | disposition home or self-care (01) ==
LOC: OR 08:54
PROVIDERS: ATTEND Podiatrist
DX: M19.072 Primary osteoarthritis, left ankle and foot (principal); I10 Essential (primary) hypertension; E11.9 Type 2 diabetes mellitus without complications; E03.9 Hypothyroidism, unspecified; E78.5 Hyperlipidemia, unspecified; J45.909 Unspecified asthma, uncomplicated; K21.9 Gastro-esophageal reflux disease without esophagitis; G89.18 Other acute postprocedural pain; J98.4 Other disorders of lung; I48.92 Unspecified atrial flutter; Z88.2 Allergy status to sulfonamides; Z88.0 Allergy status to penicillin; Z90.49 Acquired absence of other specified parts of digestive tract; Z90.710 Acquired absence of both cervix and uterus; Z96.653 Presence of artificial knee joint, bilateral; Z98.42 Cataract extraction status, left eye; Z98.41 Cataract extraction status, right eye; Z98.890 Other specified postprocedural states; Z79.51 Long term (current) use of inhaled steroids; Z79.84 Long term (current) use of oral hypoglycemic drugs; Z79.890 Hormone replacement therapy; Z79.899 Other long term (current) drug therapy
CPT/HCPCS: 28725; 64447; 64445; C1713; C1734; J2250; J0330; J1100; J0690 ×2; J2405; J2001; J3010; J2795; J2704; J2371

== ENCOUNTER → 2023-07-22 | Outpatient (CLI) | payer MEDICARE, BC ==
--- NOTE | 2023-07-22 11:23 | US ---
EXAMINATION TYPE: US venous doppler duplex LE LT DATE OF EXAM: 07/22/2023 11:09 AM COMPARISON: NONE CLINICAL INDICATION: Female, 83 years old with history of I80.9 PHLEBITIS AND THROMBOPHLEBITIS OF UNS PECIFIE; Left leg pain and swelling s/p left foot surgery 9 weeks ago/ no known prior DVT SIDE PERFORMED: Left TECHNIQUE: The lower extremity deep venous system is examined utilizing real time linear array sonog tamir with graded compression, doppler sonography and color-flow sonography. VESSELS IMAGED: Common Femoral Vein Deep Femoral Vein Greater Saphenous Vein * Femoral Vein Popliteal Vein Small Saphenous Vein * Proximal Calf Veins (* superficial vessels) Left Leg: Negative for DVT Results called to Nelda at Dr's office at time of exam IMPRESSION: Grayscale, color doppler, spectral doppler imaging performed of the deep veins of the lo wer extremities. There is normal flow, compressibility, vascular waveforms.
== END | disposition home or self-care (01) ==
LOC: RADUSWWP 10:46
PROVIDERS: ATTEND Podiatrist
DX: Z48.89 Encounter for other specified surgical aftercare (principal); M19.172 Post-traumatic osteoarthritis, left ankle and foot; M25.572 Pain in left ankle and joints of left foot; I80.9 Phlebitis and thrombophlebitis of unspecified site; M79.672 Pain in left foot